=== PATIENT | male | born 1955 | race Caucasian/White ===

== ENCOUNTER 2018-01-11 18:11 | Emergency (ER) | payer OTHER ==
[~2018-01-11] VITALS: Ht 167.6 cm; Wt 131.5 kg
[2018-01-11 18:38] LABS: Source, Urine Clean Catch
[2018-01-11] MEDS ORDERED: METO50ER PO (18:48)
[2018-01-11 18:49] LABS: Appearance, Urine Cloudy (Clear); Bilirubin, Urine Neg (Neg); Blood, Urine 5+ (Neg); Color, Urine Red (P-Yellow); Glucose Qualitative, Urine Neg (Neg); Ketones, Urine Neg (Neg); Leukocyte Esterase, Urine 1+ (Neg); Nitrite, Urine Neg (Neg); Protein, Urine 2+ (Neg); Urobilinogen, Urine NORM (Normal)
[2018-01-11] MEDS ORDERED: CHOL10002 PO (18:49)
[2018-01-11] MEDS ORDERED: NIAC500 PO (18:49)
[2018-01-11] MEDS ORDERED: HYDCHL25 PO (18:49)
[2018-01-11] MEDS ORDERED: DAILY MULTIVIT1 EAC2 PO (18:50)
[2018-01-11 19:02] LABS: Bacteria Few /hpf; Red Blood Cells, Urine 50-100 /hpf (0-2); Squamous Epithelial Cells Rare /hpf (Few)
[2018-01-11 19:12] LABS: BASOPHILS ABSOLUTE AUTO 0.05 K/mm3 (0.00-0.23); BASOPHILS PERCENT AUTO 1 % (0-2); EOSINOPHILS PERCENT AUTO 3 % (0-6); Hematocrit 39.7 % (37.0-53.0); Hemoglobin 13.7 g/dL (13.5-17.5); IMMATURE GRAN ABSOLUTE AUTO 0.01 K/mm3 (0.00-0.10); IMMATURE GRAN PERCENT AUTO 0 % (0-1); LYMPHOCYTES PERCENT AUTO 23 % (21-46); MONOCYTES PERCENT AUTO 10 % (4-13); Mean Corpuscular HGB 30.6 pg (26.0-34.0); Mean Corpuscular HGB Conc 34.5 g/dL (31.5-36.5); Mean Corpuscular Volume 89 fL (80-100); Mean Platelet Volume 9.2 fL (9.1-12.4); NEUTROPHILS ABSOLUTE AUTO 3.77 K/mm3 (1.96-9.15); NEUTROPHILS PERCENT AUTO 63 % (41-73); Platelet Count 185 K/mm3 (150-400); RDW Coefficient Variation 12.7 % (11.7-14.2); RDW Standard Deviation 41.1 fL (35.1-46.3); Red Blood Cell Count 4.47 M/mm3 (4.30-5.90); White Blood Cell Count 6.03 K/mm3 (4.00-11.30)
[2018-01-11 19:24] LABS: International Normalized Ratio 1.13; Prothrombin Time Results 11.8 Sec (9.7-11.5)
[2018-01-11 19:33] LABS: Alanine Aminotransfer (ALT/SGP 32 U/L (12-78); Albumin, Blood 3.6 g/dL (3.4-5.0); Albumin/Globulin Ratio 1.1 (0.8-1.8); Alk Phos 93 U/L (50-136); Anion Gap 10 mmol/L (6-16); Aspartate Aminotrans (AST/SGOT 28 U/L (12-37); Bilirubin, Total 0.5 mg/dL (0.1-1.0); Blood Urea Nitrogen 23 mg/dL (8-24); Bun/Creatinine Ratio 27.7 (12.0-20.0); CO2, Blood 24 mmol/L (21-32); Calcium, Blood 8.7 mg/dL (8.5-10.1); Chloride, Blood 106 mmol/L (98-108); Creatinine, Blood 0.83 mg/dL (0.60-1.20); Globulin, Blood 3.4 g/dL (2.2-4.0); Glomerular Filtration Rate >60 (60-); Glucose, Blood 129 mg/dL (70-99); Potassium, Blood 3.2 mmol/L (3.5-5.5); Sodium, Blood 140 mmol/L (136-145)
== END 2018-01-11 20:20 | disposition home or self-care (01) ==
LOC: ER 18:11
PROVIDERS: Emergency Medicine
DX: N20.0 Calculus of kidney (principal); N21.0 Calculus in bladder
CPT/HCPCS: 36415; 76770; 80053; 81001; 85025; 85610; 87086; 99284

== ENCOUNTER 2018-05-24 03:08 | Emergency (ER) | payer OTHER ==
[~2018-05-24] VITALS: Ht 170.2 cm; Wt 135.6 kg
[~2018-05-24 03:08] MED LIST: CHOL10002 PO; Cipro500 MG PO; DAILY MULTIVIT1 EAC2 PO; HYDCHL25 PO; Lotrel 10-40 M1 EACH PO; METO50ER PO; NIAC500 PO; TAMS.4ER PO
== END 2018-05-24 15:24 | disposition short-term general hospital (02) ==
LOC: ER 03:08
DX: R33.9 Retention of urine, unspecified (principal); R31.9 Hematuria, unspecified; I10 Essential (primary) hypertension; Z79.899 Other long term (current) drug therapy; Z79.2 Long term (current) use of antibiotics
CPT/HCPCS: 51702; 51798; 99284

== ENCOUNTER 2018-06-07 07:29 | Emergency (ER) | payer OTHER ==
[~2018-06-07] VITALS: Ht 177.8 cm; Wt 127.0 kg
[2018-06-07 08:39] LABS: Source, Urine Clean Catch
[2018-06-07 08:53] LABS: Bilirubin, Urine Neg (Neg); Blood, Urine 5+ (Neg); Glucose Qualitative, Urine 1+ (Neg); Ketones, Urine Neg (Neg); Leukocyte Esterase, Urine 1+ (Neg); Nitrite, Urine Neg (Neg); Protein, Urine 4+ (Neg); Specific Gravity, Urine 1.015 (1.003-1.022); Urobilinogen, Urine NORM (Normal)
[2018-06-07 08:56] LABS: Appearance, Urine Bloody (Clear); Color, Urine Red (P-Yellow)
[2018-06-07 09:02] LABS: Bacteria Not Seen /hpf; Red Blood Cells, Urine TNTC /hpf (0-2); Squamous Epithelial Cells Not Seen /hpf (Few); White Blood Cells, Urine 0-2 /hpf (0-5)
== END 2018-06-07 15:04 | disposition short-term general hospital (02) ==
LOC: ER 07:29
PROVIDERS: Emergency Medicine
DX: R33.9 Retention of urine, unspecified (principal); R31.9 Hematuria, unspecified; R82.71 Bacteriuria; I10 Essential (primary) hypertension; Z79.899 Other long term (current) drug therapy
CPT/HCPCS: 51702; 51798; 81001; 87077; 87086; 87186; 99284

== ENCOUNTER 2019-10-03 19:23 | Inpatient (IN) | payer OTHER, MEDICARE ==
[~2019-10-03] VITALS: Ht 175.3 cm; Wt 128.4 kg
[~2019-10-03 19:23] MED LIST changes: +CEPH500 PO; +METF500 PO
[2019-10-03] MEDS ORDERED: NIACIN ER1000 MG PO (19:33)
[2019-10-03] MEDS ORDERED: ASPI81CH PO (19:33)
[2019-10-03] MEDS ORDERED: AMLODIPINE-BEN1 EAC1 PO (19:33)
[2019-10-03] MEDS ORDERED: MULTI-VITAMIN1 EAC2 PO (19:33)
[2019-10-03 19:49] LABS: BASOPHILS ABSOLUTE AUTO 0.02 K/mm3 (0.00-0.23); BASOPHILS PERCENT AUTO 0 % (0-2); EOSINOPHILS ABSOLUTE AUTO 0.05 K/mm3 (0.00-0.68); EOSINOPHILS PERCENT AUTO 1 % (0-6); Hematocrit 36.5 % (37.0-53.0); Hemoglobin 12.4 g/dL (13.5-17.5); IMMATURE GRAN ABSOLUTE AUTO 0.08 K/mm3 (0.00-0.10); IMMATURE GRAN PERCENT AUTO 1 % (0-1); LYMPHOCYTES ABSOLUTE AUTO 0.64 K/mm3 (0.84-5.20); LYMPHOCYTES PERCENT AUTO 7 % (21-46); MONOCYTES ABSOLUTE AUTO 0.46 K/mm3 (0.16-1.47); MONOCYTES PERCENT AUTO 5 % (4-13); Mean Corpuscular HGB 29.7 pg (26.0-34.0); Mean Corpuscular Volume 88 fL (80-100); Mean Platelet Volume 9.8 fL (9.1-12.4); NEUTROPHILS ABSOLUTE AUTO 7.39 K/mm3 (1.96-9.15); NEUTROPHILS PERCENT AUTO 86 % (41-73); Platelet Count 225 K/mm3 (150-400); RDW Coefficient Variation 13.1 % (11.7-14.2); RDW Standard Deviation 42.4 fL (35.1-46.3); Red Blood Cell Count 4.17 M/mm3 (4.30-5.90); White Blood Cell Count 8.64 K/mm3 (4.00-11.30)
[2019-10-03 20:08] LABS: Albumin, Blood 2.9 g/dL (3.4-5.0); Albumin/Globulin Ratio 0.7 (0.8-1.8); Bilirubin, Total 0.8 mg/dL (0.1-1.0); Bun/Creatinine Ratio 18.7 (12.0-20.0); Calcium, Blood 8.7 mg/dL (8.5-10.1); Creatinine, Blood 1.82 mg/dL (0.60-1.20); Globulin, Blood 4.4 g/dL (2.2-4.0); Total Protein, Blood 7.3 g/dL (6.4-8.2)
[2019-10-03 20:20] LABS: International Normalized Ratio 1.13; Prothrombin Time Results 11.8 Sec (9.7-11.5)
[2019-10-03 23:00] LABS: Influenza A Negative (NEGATIVE); Influenza B Negative (NEGATIVE)
[2019-10-04 05:41] LABS: Calcium, Blood 8.2 mg/dL (8.5-10.1); Creatinine, Blood 1.74 mg/dL (0.60-1.20); Potassium, Blood 3.6 mmol/L (3.5-5.5)
--- NOTE | 2019-10-04 06:40 | NUR ---
Patient is a&ox4, independent in room. afebrile with stable vital signs. UA send for culture results pending. No complaints of pain or discomfort urinating or other, with exception of neck which is baseline for him since an "unfortunate visit to the chiropracter". lung sounds clear, abd soft, round and non tender. urine is clear and non odorous.
[2019-10-04 08:20] LABS: Bilirubin, Urine Neg (Neg); Blood, Urine 1+ (Neg); Glucose Qualitative, Urine Neg (Neg); Ketones, Urine 1+ (Neg); Leukocyte Esterase, Urine Neg (Neg); Nitrite, Urine Neg (Neg); Protein, Urine 2+ (Neg); Specific Gravity, Urine 1.015 (1.003-1.022); Urobilinogen, Urine NORM (Normal)
[2019-10-04 08:28] LABS: Appearance, Urine Clear (Clear); Color, Urine Yellow (P-Yellow)
[2019-10-04 08:32] LABS: Red Blood Cells, Urine 0-2 /hpf (0-2)
[2019-10-04 08:33] LABS: Bacteria Rare /hpf; Squamous Epithelial Cells Rare /hpf (Few)
--- NOTE | 2019-10-04 14:33 | NUR ---
CALL TO DOCTOR PATIENT COMPLAINING OF INCREASINGLY BAD HEADACHE. PATIENT GIVEN TYLENOL, AND ICE PACK. CALL TO DR. MCCAIN TO INFORM OF HEADACHE. NEW ORDERS FOR TRAMADOL GIVEN.
[2019-10-04 15:47] LABS: PO2 Arterial 73.2 mmHg (80-100); pH Blood Arterial 7.43 (7.35-7.45)
--- NOTE | 2019-10-04 16:50 | NUR ---
PROVIDER COMMUNICATION RESPONDED TO REQUEST FOR ASSISTANCE BY STAFF IN ROOM PCU 6. RIGHT PUPIL NOTED TO BE 3 MM AND FIXED. LEFT PUPIL 1 MM AND FIXED. PT SNORING LOUDLY. NOT RESPONDING TO STERNUM RUB OR ANY PAINFUL STIMULI. INFORMED BY MEDICAL FLOOR RN THAT PT HAD EXPERIENCED 10 SECOND APNEIC PERIOD BUT THEN WENT BACK TO PREVIOUS RESPIRATORY PATTERN. CALL PLACED TO DR. MCCAIN WHO WAS UPDATED ON THESE FINDINGS. NEW ORDER TO TRANSFER TO ICU. NOTIFIED [employer] TEACHER AND PRIMARY RN, DEWAYNE.
--- NOTE | 2019-10-04 17:05 | NUR ---
TRANSFERRED TO ICU, VIA BED, FROM CT SCAN; DX: SUBDURAL BLEED/?HEMATOMA. PATIENT NON-RESPONSIVE; BREATHING BUT UNABLE TO MANAGE AIRWAY; R.N. HOLDING PATIENTS' HEAD/JAW TO KEEP AIRWAY OPENED. E.R. PHYSICIAN CONTACTED TO INTUBATE PATIENT. DR. MCCAIN PRESENT; CONTACTED DR. CRAIG FOR CONSULT ALSO. DR. MOSS ARRIVED AND INTUBATED PATIENT WITH 7.5 ETT; PLACEMENT 22 @ LIP. PLACEMENT VERIFIED BY CXR (ORDERED BY DR. CRAIG WHO ARRIVED POST INTUBATION). OGT ALSO IN PLACE; AIR RELIEVING FROM OBESE ABDOMEN. SBP 191; HR 60'S; TEMP 100.6. PIERCE CATH PLACED AND TO GRAVITY; SOME HEMATURIA NOTED; FLUSHED WITH SALINE. VENT SETTINGS: A/C16, TV 500, PEEP 5 AND FIO2 50%. FAMILY (SON, DNL) AT BEDSIDE; AWAITING PATIENTS' TO ARRIVE. DR. MCCAIN ATTEMPTING TO GET NEUROSURGEON TO ACCEPT PATIENT (YEMI); SEE NOTES, ETC.
--- NOTE | 2019-10-04 17:12 | NUR ---
PRE INTUBATION MEDS: ETOMIDATE 20MG AND SUCCINATE 200MG; ETT PLACED AT 1714.
--- NOTE | 2019-10-04 17:29 | NUR ---
PT TRANSFER/UPDATE... PT WAS TRANSFERED TO PCU 6 AT 1645, MED FLOOR NURSE WITH PT TO GIVE BEDSIDE REPORT. PT HAD JUST CAME FROM A STAT HEAD CT. PT WAS DUSKY WITH LOUD SNOROUS BREATHING. PT WAS ALSO VOMITING. PT WAS GOTTEN INTO THE ROOM AND TRANSFERED TO PCU BED. PT'S VS WERE: 169/90. HR NSR 62, RR 24 97% ON 2L NC TEMP 99.1. PT IT WAS NOTED THAT PT'S PUPILS WERE FIXED AND THE RIGHT PUPIL WAS APROX 2MM AND THE LEFT WAS 4MM. STERNAL RUB WAS DONE AND PT DID NOT RESPOND. AT APROX 1650 BROOK RN WAS ASKED TO CALL PROVIDER. PT HAD AN APNIC PERIOD OF APROX 10 SECONDS DURING THIS TIME. PT WAS TRANSFERED TO ICU WITH MED FLOOR NURSE.
[2019-10-04 17:40] LABS: PCO2 Arterial 35.2 mmHg (35-45); PO2 Arterial 73.2 mmHg (80-100); pH Blood Arterial 7.36 (7.35-7.45)
--- NOTE | 2019-10-04 17:50 | NUR ---
RN CONTACTED GUILHERME AT [facility]; REPORT GIVEN. PATIENT TO GO TO [address] COOPER IS RECEIVING PHYSICIAN.
[2019-10-04 18:02] LABS: BASOPHILS ABSOLUTE AUTO 0.04 K/mm3 (0.00-0.23); BASOPHILS PERCENT AUTO 0 % (0-2); EOSINOPHILS ABSOLUTE AUTO 0.01 K/mm3 (0.00-0.68); EOSINOPHILS PERCENT AUTO 0 % (0-6); Hematocrit 36.4 % (37.0-53.0); Hemoglobin 11.8 g/dL (13.5-17.5); IMMATURE GRAN ABSOLUTE AUTO 0.06 K/mm3 (0.00-0.10); IMMATURE GRAN PERCENT AUTO 1 % (0-1); LYMPHOCYTES PERCENT AUTO 5 % (21-46); MONOCYTES ABSOLUTE AUTO 0.97 K/mm3 (0.16-1.47); MONOCYTES PERCENT AUTO 8 % (4-13); Mean Corpuscular HGB 29.6 pg (26.0-34.0); Mean Corpuscular HGB Conc 32.4 g/dL (31.5-36.5); Mean Corpuscular Volume 92 fL (80-100); Mean Platelet Volume 10.2 fL (9.1-12.4); NEUTROPHILS PERCENT AUTO 87 % (41-73); Platelet Count 185 K/mm3 (150-400); RDW Coefficient Variation 13.5 % (11.7-14.2); RDW Standard Deviation 45.4 fL (35.1-46.3); Red Blood Cell Count 3.98 M/mm3 (4.30-5.90); White Blood Cell Count 12.98 K/mm3 (4.00-11.30)
--- NOTE | 2019-10-04 18:21 | NUR ---
CHANGE IN STATUS/PATIENT TRANSFER AT APPROXIMATELY 1500 PATIENT COMPLAINED OF NAUSEA AND DRY HEAVES, STATING THAT HE STILL HAD A SEVERE HEADACHE. PATIENT ALERT AND ORIENTED AT THIS TIME. PATIENT UNDERWENT BEDSIDE RENAL ULTRASOUND AT THIS TIME. DURING FARO DEALER CALLED STAFF TO INFORM THAT PATIENT HAD BECOME CONFUSED AND WAS MAKING INCOHERENT STATEMENTS. RN RESPONDED AND UPON ENTERING ROOM PATIENT BEGAN PROFUSELY VOMITING. PATIENT HAD GARBLED AND SLURRED SPEECH. PATIENT UNABLE TO ANSWER ORIENTATION QUESTIONS CORRECTLY. PATIENT LETHRGIC BUT AROUSABLE. CALL TO DR. MCCAIN. DR. MCCAIN AT BEDSIDE- ORDERS FOR STAT ABG. BEDSIDE CBG 199. 8MG ZOFRAN GIVEN. ABG UNREMARKABLE. RN ACCOMPANIED PATIENT TO CT. TRANSFER ORDER TO PCU. PATIENT CONTINUED TO VOMIT, HAVE DECRESED LOC, AND BEGAN IRREGULAR RESPERATION DURING TRANSFER FROM CT TO PCU. DURING TRANSFER TO PCU BED PATIENT BECAME UNRESPONSIVE TO STERNAL RUM AND PAINFUL STIMULI. R PUPIL NOTED TO BE FIXED AND DILATED TO 4MM, LEFT PUPIL 2MM. PREVIOUSLY BOTH PUPILS WERE EQUAL. APNEIC PERIOD ALSO NOTED AT THIS TIME. FURNACE RELINER CALLED DR. KAMARA TO TRANSFER TO ICU. REPORT GIVEN TO TOOL CRIB ATTENDANT AT BEDSIDE.
[2019-10-04 18:24] LABS: Albumin, Blood 2.8 g/dL (3.4-5.0); Albumin/Globulin Ratio 0.7 (0.8-1.8); Bilirubin, Total 0.4 mg/dL (0.1-1.0); Bun/Creatinine Ratio 19.1 (12.0-20.0); Calcium, Blood 8.1 mg/dL (8.5-10.1); Creatinine, Blood 1.52 mg/dL (0.60-1.20); Globulin, Blood 4.2 g/dL (2.2-4.0)
--- NOTE | 2019-10-04 18:45 | NUR ---
[facility] HERE; Oliver LAI AND MICHI BROWN TO ACCOMPANY AND MANAGE VENT AND MEDS. A/C UP TO 28 TO HYPERVENTILATE. REPORT TO STAFF. ALL MEDS. GOING; VIA 3 IV SITES. PROPOFOL AT 5MCGKG/MIN; TO KEEP SBP ABOVE 150.
--- NOTE | 2019-10-04 19:10 | NUR ---
TRANSFERRED OUT OF ICU AND TO [facility] VIA [facility]; PARAMEDICS, X2, RN AND R.T. ACCOMPANYING. RN T/C OR NURSE, RECEIVING HOSPITAL ([facility]ERY[facility] WITH UPDATE AND INFORMED RN ACCOMPANYING AND WILL GIVE UPDATE ON ARRIVAL.
== END 2019-10-04 19:15 | disposition short-term general hospital (02) | DRG 871 ==
LOC: ER 19:23 → MEDS 22:41 → ICUE 10-04 17:05
PROVIDERS: Hospitalist; Physician Assistant; ADMIT Internal Medicine
PROC: 0BH18EZ Insertion of Endotracheal Airway into Trachea, Via Natural or Artificial Opening Endoscopic (ICD-10-PCS; principal; 2019-10-04)
PROC: 5A1945Z Respiratory Ventilation, 24-96 Consecutive Hours (ICD-10-PCS; 2019-10-04)
DX: A41.9 Sepsis, unspecified organism (principal); I62.00 Nontraumatic subdural hemorrhage, unspecified; J18.9 Pneumonia, unspecified organism; N17.9 Acute kidney failure, unspecified; N39.0 Urinary tract infection, site not specified; Z79.82 Long term (current) use of aspirin; I10 Essential (primary) hypertension; E11.9 Type 2 diabetes mellitus without complications; G47.30 Sleep apnea, unspecified; Z79.84 Long term (current) use of oral hypoglycemic drugs; R65.20 Severe sepsis without septic shock
CPT/HCPCS: 31500; 31720; 36415; 36600; 51702; 70450; 71045; 76770; 80048; 80053; 81001; 82803; 82947; 83036; 83605; 83930; 84145; 85025; 85610; 85730; 87040; 87077; 87086; 87186; 87804; 93005; 93010; 94002; 94660; 94762; 96361; 96374; 99285-25; A9270; A9270-GY; J0330; J0696; J1650; J2405; J2543; J2704; J7030; J7120